=== PATIENT | male | born 1960 | race African-American/Black ===

== ENCOUNTER 2017-02-18 10:48 | Emergency (ER) | payer SELFPAY ==
[2017-02-18] MEDS ORDERED: CLARITIN (10:54)
[2017-02-18] MEDS ORDERED: LISINOPRIL (10:54)
[2017-02-18] MEDS ORDERED: METOPROLOL (10:54)
[2017-02-18 11:11] VITALS: BP 181/93
== END 2017-02-19 08:47 | disposition left against medical advice (07) ==
LOC: ER 10:58
DX: R10.32 Left lower quadrant pain (principal); Z53.21 Procedure and treatment not carried out due to patient leaving prior to being seen by health care provider